=== PATIENT | female | born 1955 | race Caucasian/White ===

== ENCOUNTER 2018-04-05 06:30 | Day surgery (SDC) | payer OTHER ==
[2018-04-05] MEDS ORDERED: DESFLURANE 15 MIN (07:00)
[2018-04-05] MEDS ORDERED: CEFAZOLIN 2 GM/50 ML (PMX) 50 ML IVPB (07:00)
[2018-04-05] MEDS ORDERED: SOD CHLORIDE 0.9% 1,000 ML IV (07:00)
[2018-04-05] MEDS ORDERED: DIPHENHYDRAMINE 50 MG INJ IV (07:30)
[2018-04-05] MEDS ORDERED: MEPERIDINE 25 MG INJ IV (07:30)
[2018-04-05] MEDS ORDERED: FENTAnyl 50 MCG/ML VIAL IV ×3 (07:30)
[2018-04-05] MEDS ORDERED: ONDANSETRON 4 MG INJ IV ×2 (07:30→09:00)
[2018-04-05] MEDS ORDERED: HYDROmorphONE 1 MG/5 ML IV SYRINGE IV ×2 (07:30)
[2018-04-05] MEDS ORDERED: ALBUTEROL 0.083% (NEB) 2.5 MG/3 ML AMP HHN (07:30)
[2018-04-05] MEDS ORDERED: FENTAnyl 50 MCG/ML VIAL (07:37)
[2018-04-05] MEDS ORDERED: ROPIVACAINE 0.5 % 30 ML VIAL (07:37)
[2018-04-05] MEDS ORDERED: SUCCINYLCHOLINE CHLORIDE 100 MG/5 ML SYG IV (08:00)
[2018-04-05] MEDS ORDERED: CEFAZOLIN 1 GM INJ (08:00)
[2018-04-05] MEDS ORDERED: NEOSTIGMINE 3 MG/3 ML SYRINGE (08:00)
[2018-04-05] MEDS ORDERED: ROCURONIUM 50 MG INJ (08:00)
[2018-04-05] MEDS ORDERED: GLYCOPYRROLATE 0.4 MG INJ (08:00)
[2018-04-05] MEDS ORDERED: LIDOCAINE 100 MG SYRINGE (08:00)
[2018-04-05] MEDS ORDERED: PROPOFOL 20 ML (08:00)
[2018-04-05] MEDS: BUPIVACAINE 0.25% (MPF) 30 ML INJ (08:57)
[2018-04-05] MEDS ORDERED: IBUPROFEN 600 MG TAB PO (09:00)
[2018-04-05] MEDS ORDERED: HYDROCODONE/APAP (5/325) TAB PO ×2 (09:00)
[2018-04-05] MEDS ORDERED: KETOROLAC 30 MG INJ IV (09:00)
[2018-04-05] MEDS ORDERED: morphine 2 MG INJ IV (09:00)
[2018-04-05] MEDS: HYDROmorphONE 1 MG/5 ML IV SYRINGE IV (09:52)
== END 2018-04-05 11:00 | disposition home or self-care (01) ==
LOC: SDS 06:30
DX: K80.10 Calculus of gallbladder with chronic cholecystitis without obstruction (principal); E66.9 Obesity, unspecified; Z68.31 Body mass index [BMI] 31.0-31.9, adult
CPT/HCPCS: 47562; 88304